=== PATIENT | male | born 1990 ===

== ENCOUNTER 2023-01-26 04:50 | Emergency (ER) | payer SELFPAY ==
[2023-01-26] MEDS ORDERED: Acetaminophen/HYDROcodone 325-5 MG Tab PO ONE (05:42)
[2023-01-26] MEDS ORDERED: Ibuprofen 600 MG Tab PO ONE (05:42)
== END 2023-01-26 06:46 | disposition home or self-care (01) ==
LOC: MW.ED 04:50
DX: S59.902A Unspecified injury of left elbow, initial encounter (principal); I10 Essential (primary) hypertension; E11.9 Type 2 diabetes mellitus without complications; Z79.84 Long term (current) use of oral hypoglycemic drugs; W01.0XXA Fall on same level from slipping, tripping and stumbling without subsequent striking against object, initial encounter
CPT/HCPCS: 29125; 73080; 99283; A9270